=== PATIENT | male | born 1995 | race African-American/Black ===

== ENCOUNTER 2018-09-11 11:30 | Observation (INO) ==
[2018-09-11] MEDS ORDERED: Chlorhexidine Gluconate 2% 1 Pack (2 Cloths) TOPICAL ONE (13:00)
[2018-09-11] MEDS ORDERED: Metoprolol Tartrate 25 MG Tablet PO ONE (13:00)
[2018-09-11] MEDS ORDERED: Sodium Chlor 0.9% Inj 500 ML IV.CONT ONE (13:00)
[2018-09-11 13:58] LABS: INR 1.1 Ratio; Prothrombin Time 11.1 sec (9.8-11.6)
[2018-09-11] MEDS ORDERED: ceFAZolin 2 GM IV; once IV.SIG SCH (14:00)
[2018-09-11] MEDS ORDERED: Iohexol Inj 350 MG/ML 100 ML Bottle (for RAD Diag) IVCONTRAST ONE (15:48)
[2018-09-11] MEDS ORDERED: fentaNYL Citrate Inj 250 MCG/5 ML Ampul ONE (17:01)
[2018-09-11] MEDS ORDERED: fentaNYL Citrate Inj 100 MCG/2 ML Ampul ONE ×2 (17:04)
[2018-09-11] MEDS ORDERED: Morphine Inj 4 MG/ML Vial IV.PUSH PRN (18:17)
[2018-09-11] MEDS: Ketorolac Inj 30 MG/ML (IVP) Vial IV.PUSH SCH (19:01)
[2018-09-11 19:04] LABS: Baso % (Auto) 0.3 % (0.0-2.0); Eos % (Auto) 0.1 % (0.0-4.0); Hematocrit 40.9 % (39.0-51.0); Hemoglobin 13.9 gm/dL (13.0-17.0); Lymph # (Auto) 0.8 th/mm3 (1.0-4.8); Lymph % (Auto) 6.2 % (9.0-44.0); Mean Corpuscular HGB Conc 34.1 % (32.0-36.0); Mean Corpuscular Hemoglobin 28.6 pg (27.0-34.0); Mean Corpuscular Volume 84.1 fL (80.0-100.0); Mean Platelet Volume 8.1 fL (7.0-11.0); Mono # (Auto) 0.3 th/mm3 (0.0-0.9); Mono % (Auto) 2.6 % (0.0-8.0); Neut # (Auto) 11.4 th/mm3 (1.8-7.7); Neut % (Auto) 90.8 % (16.0-70.0); Platelet Count 187 th/mm3 (150-450); Red Blood Count 4.87 mil/mm3 (4.50-5.90); Red Cell Distribution Width 14.8 % (11.6-17.2); White Blood Count 12.6 th/mm3 (4.0-11.0)
--- NOTE | 2018-09-11 19:23 | MP ---
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 PROCEDURE: 1. Robotic-assisted laparoscopic right robotic pyeloplasty. 2. Cystoscopy, right retrograde pyelogram, insertion of right ureteral stent. SURGEON: Anthony Myrick MD ANESTHESIA: General. COMPLICATIONS: None. PREOPERATIVE ANTIBIOTICS: Ancef 2 grams IV. DRAINS: 1. Chou catheter to gravity drainage. 2. A COLTON drain to bulb suction. 3. 6 x 28 Double J Right Ureteral Stent. ESTIMATED BLOOD LOSS: 300 mL. FLUIDS: 2300 Crystalloid per Anesthesia. DISPOSITION: Stable to recovery. INDICATIONS: The patient is a 22-year-old male with complaints of right flank pain. The patient was found to have severe right hydronephrosis. He was subsequently diagnosed with a right UPJ obstruction by Lasix renogram. He was found to have approximately 21% function remaining on the right side, with 79% on the left. Treatment options were discussed, and he elected to proceed with laparoscopic pyeloplasty. After risks, benefits, and alternatives were explained to the patient, including loss of right kidney, the patient elected to proceed. Informed consent was obtained. DETAILS OF PROCEDURE: The patient was properly identified and brought back to the operating room supine on the operating table. Proper timeout was performed under the direction of Anesthesiology. The patient was induced under general anesthetic. Preoperative antibiotics in the form of Ancef 2 grams IV was given within 1 hour of the procedure, the patient was then placed in dorsal lithotomy position, prepped and draped in the normal sterile surgical fashion. Rigid cystoscope was carefully passed into the patient's bladder per urethral without any difficulty. The bladder was carefully examined. There was no evidence of bladder tumors, stones, diverticula or trabeculations. The right ureteral orifice was carefully identified and appeared in normal anatomic location. A 5-St Helenian open-ended ureteral catheter was then carefully inserted. A right retrograde pyelogram was performed, which showed a large dilated right renal pelvis with a narrowing right at the UPJ. At this point, a wire was then passed through the open-ended ureteral catheter up into the right kidney. A 6 x 28 double-J stent was then carefully backloaded over the wire up into the right kidney. It was found to be in good position with the proximal curl in the renal pelvis and good curl in the bladder and the bladder was then drained. A Chou catheter was inserted under sterile technique. At this point, the patient was then repositioned into the left lateral decubitus position with right side up. All pressure points were padded. A stab incision was made just superior and lateral to the umbilicus. A Veress needle was then used to gain access to the abdominal cavity. Pneumoperitoneum was achieved. At this time, under direct visualization I then passed a 12 mm camera port into the patient's abdominal cavity. The abdominal cavity was carefully inspected and no evidence of intra-abdominal injury, including bleeding. At this time he did have some adhesions on the anterior abdominal wall. At this time, I then passed an 8 mm robotic port, 2 fingerbreadths below the subcostal margin in the right upper quadrant, followed by a 12 mm research program assistant port in the midline superior to the umbilicus. I turned my attention then to the right lower quadrant. I then made a small stab incision in the right lower quadrant and placed my second 8 mm robotic port. However, after making a stab incision, there was noted a significant amount of bleeding coming from this incision. The incision was carefully extended 3 cm to find location of bleeding, and it appeared that an epigastric had been injured. At this time, I was able to gain control of it and placed a tie of 2-0 silk around this epigastric tiny vessel to control the bleeding. I then placed the 8 mm robotic port into the abdominal cavity. The abdominal cavity was once again inspected. There was no evidence of any bleeding inside the abdominal cavity, indicating all the bleeding was superficial. At this time, the robot was then brought into position. I began by taking down the adhesions of the anterior abdominal wall to release the colon. The colon was then reflected medially by taking down the white line of Toldt. The patient had minimal fat within his abdominal cavity. The distal portion of the ureter was easily identified. I then followed to the ureter all the way up to the UPJ where a large crossing lower pole arterial vessel was identified. I then retracted the kidney anteriorly with a Choco needle. I then carefully dissected the artery off of the ureter and mobilized the renal pelvis. At this time, the ureter was then divided at the renal pelvis. It was then brought on anterior to the vessels so that the vessel was going posterior to the renal pelvis and the ureter. The ureter was then done with a running 3-0 Vicryl watertight anastomosis over the stent. Three grams of Tiana was used for hemostatic purposes. The ureter was then carefully placed again on top of this vessel. There was no evidence of any significant tension. Hemostasis was adequate. A 15-St Helenian round drain was then placed through the lower robotic port. At this time, the ports were then removed under direct visualization. However, at this time, I noticed that the skin incisions were still oozing a significant amount of blood superficially. Beginning with the right lower quadrant incision, I then was able to find another section of the epigastric that had been causing a slow bleed. This was then ligated with a Hem-o-felipe, clip. This incision appeared to be dry at this time. The midline camera incision had to be extended as well, approximately 3 cm, to find significant bleeding. It appeared that the fat and the skin incision was diffusely bleeding. This was controlled with electrocautery. However, at this time I was concerned that patient may have some type of bleeding disorder. At this time, the incisions were then closed with a 3-0 Vicryl and Monocryl and reinforced with Dermabond. The drain was secured with a 3-0 nylon suture. Sponge, instrument and needle counts were correct at the end of the case. Of note, the patient did lose approximately 300 mL of which were from the beginning and the end of the case of placing ports and extracting ports. This concluded the procedure. The patient was extubated and sent to recovery in stable condition, to be transferred to the floor for routine postoperative care. MD LIA Guerrero/francisco , 06:27 PM , 06:37 PM VIRAL
[2018-09-11] MEDS: Sodium Chlor 0.9% Inj 1,000 ML IV.SIG SCH (19:30)
[2018-09-11 19:34] LABS: Calcium 8.8 mg/dL (8.5-10.1); Carbon Dioxide 28.4 meq/L (21.0-32.0); Potassium 4.6 meq/L (3.5-5.1)
[2018-09-11] MEDS ORDERED: Pantoprazole Inj 40 MG Vial IV.PUSH SCH (20:00)
[2018-09-11] MEDS: Docusate Sodium 100 MG Capsule PO SCH (20:34)
[2018-09-11] MEDS: ceFAZolin 1 GM Premix Inj 1 GM/50 ML PIGGYBACK IV.SIG SCH (21:17)
[2018-09-12] MEDS: Ketorolac Inj 30 MG/ML (IVP) Vial IV.PUSH SCH ×2 (00:23→05:48)
[2018-09-12] MEDS: Sodium Chlor 0.9% Inj 1,000 ML IV.SIG SCH (03:19)
[2018-09-12 05:02] LABS: Hemoglobin 12.5 gm/dL (13.0-17.0); Mean Corpuscular HGB Conc 33.7 % (32.0-36.0); Mean Corpuscular Hemoglobin 28.1 pg (27.0-34.0); Mean Corpuscular Volume 83.3 fL (80.0-100.0); Mean Platelet Volume 7.9 fL (7.0-11.0); Platelet Count 198 th/mm3 (150-450); Red Blood Count 4.44 mil/mm3 (4.50-5.90); Red Cell Distribution Width 14.4 % (11.6-17.2); White Blood Count 9.9 th/mm3 (4.0-11.0)
[2018-09-12] MEDS: ceFAZolin 1 GM Premix Inj 1 GM/50 ML PIGGYBACK IV.SIG SCH (05:03)
[2018-09-12 05:36] LABS: Carbon Dioxide 26.4 meq/L (21.0-32.0); Potassium 4.6 meq/L (3.5-5.1)
[2018-09-12 05:53] VITALS: O2SAT 98
[2018-09-12] MEDS: Docusate Sodium 100 MG Capsule PO SCH (08:25)
[2018-09-12 11:39] VITALS: BP 140/78; PULSE 53; RESP 24; TEMP 98.2
--- NOTE | 2018-09-12 13:56 | P.PNURO ---
Subjective Patient symptoms today: Pt was seen this afternoon at bedside. Doing well. Pain is well controlled. no f /c/n/v, no significant hematuria, urine just pink color due to a stent. COLTON drain has small output and was removed earlier today. Chou removed, he is voiding ok. Occasionally has mild nausea, possibly related to post anesthesia Ambulates ok Objective Vital Signs: Vital Signs 09/11/18 18:39 09/11/18 18:45 09/11/18 19:00 Temperature 98.1 F Pulse Rate 69 70 72 Respiratory Rate 18 Blood Pressure 139/74 141/72 H 133/67 Pulse Oximetry 100 100 100 09/11/18 19:15 09/11/18 19:39 09/11/18 20:00 Temperature 97.9 F 99.1 F Pulse Rate 62 60 69 Respiratory Rate 18 Blood Pressure 133/71 138/67 136/64 Pulse Oximetry 100 100 100 09/11/18 23:50 09/12/18 04:00 09/12/18 11:16 Temperature 99.1 F 98.7 F 98.2 F Pulse Rate 68 60 53 L Respiratory Rate 18 18 24 Blood Pressure 119/56 L 130/74 140/78 Pulse Oximetry 99 98 98 Intake & Output 09/11/18 09/12/18 09/12/18 18:59 06:59 18:59 Intake Total 2300 / 2300 1820 / 1820 2300 / 2300 Output Total 350 / 350 1535 / 1535 1475 / 1475 Balance 1950 / 1950 285 / 285 825 / 825 Weight 85.8 kg 85.9 kg Intake: IV 1100 / 1100 1500 / 1500 LR 1000 mL Inj 1,000 ML @ 30 500 / 500 mls/hr IV.CONT .Q24H ONE Rx#: [id number] NS Inj 1,000 ML @ 125 mls/hr IV 1000 / 1000 1000 / 1000 .SIG .Q10H JENNIFER Rx#:[id number] Ancef 1 GM Premix Inj 1 gm In 100 / 100 50 ml @ 150 mls/hr IV.SIG Q8H JENNIFER Rx#:[id number] Oral 720 / 720 800 / 800 Anesthesia Amount 2300 / 2300 Output: Urine 1500 / 1500 250 / 250 Estimated Blood Loss 350 / 350 Urine Amount (Catheter) 1200 / 1200 Indwelling Urethral Catheter 1200 / 1200 Wound Drainage 35 / 35 25 / 25 # 1 Abdomen 35 / 35 25 / 25 Result Diagrams: 09/12/18 04:38 09/12/18 04:38 Other Results: NAD RRR Clear lungs Abd soft NT Medications and IVs: Active Medications Generic Name Dose Route Start Last Admin Trade Name Freq PRN Reason Stop Dose Admin Docusate Sodium 100 mg 09/11/18 21:00 09/12/18 08:25 Colace PO Not Given BID JENNIFER Miscellaneous Information 1 each 09/11/18 19:07 Misc Nursing Information OTHER 09/12/18 19:07 UNSCH PRN SEE LABEL COMMENTS Ondansetron HCl 4 mg 09/11/18 18:16 09/12/18 13:30 Zofran Inj IV.PUSH 4 mg Q6H PRN Administration NAUSEA OR VOMITING Oxycodone/Acetaminophen 2 tab 09/11/18 18:15 09/12/18 10:41 Percocet 5/325 Mg PO 2 tab Q4H PRN Administration PAIN SCALE 6 TO 10 Pantoprazole Sodium 40 mg 09/11/18 20:00 09/11/18 20:34 Protonix Inj IV.PUSH 40 mg Q24H JENNIFER Administration Assessment and Plan - Plan POD # 1 s/p: 1. Robotic-assisted laparoscopic right robotic pyeloplasty. 2. Cystoscopy, right retrograde pyelogram, insertion of right ureteral stent. - Continue current management - Pain control prn - Ambulate - Continue current diet Possibly d/c later today Discussed Condition With: Dr Myrick and pt's RN
== END 2018-09-12 14:49 | disposition home or self-care (01) ==
LOC: HSDC 11:30 → HSDI 11:30 → EDSTATUS 13:30 → N07 19:50
PROVIDERS: ADMIT Urology; ATTEND Urology